=== PATIENT | male | born 1985 | race Caucasian/White ===

== ENCOUNTER 2022-02-20 14:12 | Emergency (ER) | payer OTHER ==
[~2022-02-20] VITALS: Ht 185.4 cm; Wt 89.8 kg
--- NOTE | 2022-02-20 14:25 | NUR ---
PT IS IN ROOM #AB. DR ARMSTRONG EVALUATED THE PT.
[2022-02-20] MEDS ORDERED: IV NORMAL SALINE 1000 ML BAG IV ONE (14:30)
--- NOTE | 2022-02-20 14:35 | NUR ---
[facility] in [facility] - 02/20/22 at 1602 by VAHID started 2nd bag of Mg.
[2022-02-20 14:52] LABS: HEMATOCRIT 43.7 % (36.7-47.1); MEAN CORPUSCULAR HEMOGLOBIN 31.3 uug (23.8-33.4); MEAN CORPUSCULAR VOLUME 92.4 fL (73.0-96.2); PLATELET COUNT (AUTO) 193 K/uL (152-348)
[2022-02-20 15:00] LABS: CARBON DIOXIDE 25 mmol/L (21-32); CHLORIDE 104 mmol/L (98-107); CREATININE 1.2 mg/dL (0.6-1.3); GLUCOSE 125 mg/dL (74-106); POTASSIUM 3.4 mmol/L (3.5-5.1); UREA NITROGEN, BLOOD 8 mg/dL (7-18)
[2022-02-20 15:13] LABS: THYROID STIMULATING HORMONE 1.489 mIU/mL (0.358-3.740)
[2022-02-20 15:15] LABS: ACETAMINOPHEN < 2.0 ug/mL (10-30); ALANINE AMINOTRANSFERASE 29 U/L (16-63); ALKALINE PHOSPHATASE 71 U/L (50-136); ASPARTATE AMINOTRANSFERASE 22 U/L (15-37); BILIRUBIN,DIRECT 0.2 mg/dL (0.0-0.2); CREATINE KINASE, TOTAL 156 U/L (39-308); TOTAL PROTEIN, SERUM 7.5 g/dL (6.4-8.2)
[2022-02-20 15:16] LABS: ETHANOL < 3 MG/DL (0-0)
[2022-02-20 16:48] LABS: *BILIRUBIN,URIN NEGATIVE (NEGATIVE); *BLOOD, URINE NEGATIVE (NEGATIVE); *CLARITY,URINE CLEAR (CLEAR); *COLOR,URINE YELLOW (YELLOW); *KETONES,URINE 2+ (NEGATIVE); *UROBILINOGEN,URINE 0.2 E.U./dl (NORMAL); LEUKOCYTE ESTERASE ,URINE NEGATIVE (NEGATIVE); NITRITE, URINE NEGATIVE (NEGATIVE); UGLUCOSE NEGATIVE (NEGATIVE)
[2022-02-20 17:02] LABS: *AMPHETAMINE, URINE NEGATIVE (NEGATIVE); *CANNABINOID, URINE NEGATIVE (NEGATIVE); *COCCAINE, URINE NEGATIVE (NEGATIVE); *OPIATE, URINE NEGATIVE (NEGATIVE); *PHENCYCLIDINE SCREEN,URINE NEGATIVE (NEGATIVE)
--- NOTE | 2022-02-20 17:43 | NUR ---
Pt in [employer] custody, gave officer d/c instructions, pt verbalized understanding.
== END 2022-02-20 17:46 ==
LOC: ER 14:12
DX: Z02.89 Encounter for other administrative examinations (principal); R46.2 Strange and inexplicable behavior; E87.6 Hypokalemia; Z20.822 Contact with and (suspected) exposure to COVID-19; R73.9 Hyperglycemia, unspecified; R94.4 Abnormal results of kidney function studies
CPT/HCPCS: 80076; 80048; 81003; 82550; 87806; 84443; 85025; 85730; 87426; 36415; 71045; 99284; 96360; 83605 ×2; 80299; 80320; 80307; 86592; J7040; A4663; G0480